=== PATIENT | male | born 1950 | race Caucasian/White ===

== ENCOUNTER → 2016-12-31 | Outpatient (CLI) | payer OTHER | LOC: CAT 14:40 | DX: Z13.6 Encounter for screening for cardiovascular disorders (principal) ==

== ENCOUNTER → 2017-08-06 | Outpatient (CLI) | payer OTHER | LOC: MRI 11:18 | DX: M75.91 Shoulder lesion, unspecified, right shoulder (principal); M65.811 Other synovitis and tenosynovitis, right shoulder ==

== ENCOUNTER → 2020-09-11 | Outpatient (CLI) | payer OTHER ==
[2020-09-11 13:00] LABS: BASOPHILS 1.1 % (0.0-2.0); EOSINOPHILS 5.5 % (0.0-3.0); HEMATOCRIT 44.3 % (42.0-52.0); HEMOGLOBIN 14.9 gm/dL (14.0-18.0); LYMPHOCYTES 22.3 % (24.0-44.0); MCH 32.5 pg (26.0-34.0); MCHC 33.7 g/dL (28.0-37.0); MCV 96.3 fL (80.0-100.0); MONOCYTES 12.6 % (1.0-8.0); PLATELET COUNT 257 thou/uL (150-400); POLYS 58.5 % (36.0-66.0); RDW 14.8 % (10.5-14.5); WBC 8.6 thou/uL (4.0-11.0)
[2020-09-11 13:16] LABS: ALBUMIN 3.9 g/dL (3.4-5.0); CALCIUM 8.8 mg/dL (8.5-10.1); CREATININE 1.1 mg/dL (0.7-1.3); POTASSIUM 4.2 mmol/L (3.5-5.1); TOTAL BILIRUBIN 0.6 mg/dL (0.2-1.0); TOTAL PROTEIN 7.1 g/dL (6.4-8.2)
== END ==
LOC: LAB 12:07
PROVIDERS: ATTEND Nurse Practitioner
DX: G31.89 Other specified degenerative diseases of nervous system (principal); G45.9 Transient cerebral ischemic attack, unspecified

== ENCOUNTER → 2020-10-18 | Outpatient (CLI) | payer OTHER | LOC: SJCVCIMAG 09:55 | PROVIDERS: ATTEND Family Medicine | DX: I08.3 Combined rheumatic disorders of mitral, aortic and tricuspid valves (principal); I63.9 Cerebral infarction, unspecified ==

== ENCOUNTER → 2020-11-23 | Outpatient (CLI) | payer OTHER | LOC: SJCVC 12:46 | PROVIDERS: ATTEND Internal Medicine | DX: G45.9 Transient cerebral ischemic attack, unspecified (principal); R93.1 Abnormal findings on diagnostic imaging of heart and coronary circulation; E78.5 Hyperlipidemia, unspecified; N42.9 Disorder of prostate, unspecified; Z88.8 Allergy status to other drugs, medicaments and biological substances; Z87.891 Personal history of nicotine dependence; Z72.89 Other problems related to lifestyle ==

== ENCOUNTER → 2020-12-05 | Outpatient (CLI) | payer OTHER ==
[2020-12-05 10:19] VITALS: BP 116/68
--- NOTE | 2020-12-13 12:20 | LINQ ---
[facility] [place] [address] LINQ PROCEDURE REPORT Name: RAH KNAPP Room #: REG Julian Arauz#: [id number] Admission: 12/05/20 Attend Phys: Chana Bowling Discharge: Date of : 48 Report #: [id number] THIS REPORT FOR: cc: Aaron Paredes MD, Neal A. MD Lammoglia, Francisco J. 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 Conscious Sedation Start time: 9:59 End Time: 10:10 Implanted Devices: [employer] REVEAL LINQ LNQ11 SN:[id number] EXPIRATION DATE:2021-09-05 Procedure The patient underwent informed consent. We discussed the details of the procedure including the risks, which include, but not limited to bleeding, infection, vascular damage, cardiac perforation, and pneumothorax. Apical consent was obtained the patient was brought to the cardiac incision laboratory prepped and hold. Left chest was prepped and draped in usual sterile manner. 1% lidocaine a wheal was raised and the proposed tract was instilled. An 11 blade was then utilized for a small incision and using both sharp and blunt dissection a pocket was developed. The device was then deployed with deployment tool without complications. Subcutaneous tissue was closed with 2 simple interrupted nonabsorbable sutures and the skin was closed with a 3-0 absorbable subcuticular stitch. Dermabond Steri-Strips 4 x 4 OpSite were then utilized. Patient tolerated procedure well Complications [facility] [place] [address] Vint PROCEDURE REPORT Name: RAH KNAPP Room #: [facility]#: [id number] Admission: 12/05/20 Attend Phys: Chana Priest Discharge: Date of : 48 Report #: [id number] The patient tolerated the procedure well and there were no complications associated with the procedure. Conclusion 1. Successful insertion of an implantable loop recorder Recommendations 1. Routine post loop recorder insertion protocol <ELECTRONICALLY SIGNED> By: Chana Bowling MD 12/13/20 1220 19 19 Chana Bowling MD /INF
== END | disposition home or self-care (01) ==
LOC: CATH 08:25
PROVIDERS: ATTEND Internal Medicine
DX: I48.91 Unspecified atrial fibrillation (principal); G45.9 Transient cerebral ischemic attack, unspecified; Z88.8 Allergy status to other drugs, medicaments and biological substances

== ENCOUNTER → 2021-01-01 | Outpatient (CLI) | payer OTHER | LOC: SJCVC 13:47 | PROVIDERS: ATTEND Internal Medicine | DX: G45.9 Transient cerebral ischemic attack, unspecified (principal); E78.5 Hyperlipidemia, unspecified; R93.1 Abnormal findings on diagnostic imaging of heart and coronary circulation; Z88.8 Allergy status to other drugs, medicaments and biological substances; Z79.82 Long term (current) use of aspirin; Z79.899 Other long term (current) drug therapy; Z87.891 Personal history of nicotine dependence; Z72.89 Other problems related to lifestyle; N40.0 Benign prostatic hyperplasia without lower urinary tract symptoms; E66.9 Obesity, unspecified; Z82.49 Family history of ischemic heart disease and other diseases of the circulatory system ==